=== PATIENT | female | born 1975 | race Caucasian/White ===

== ENCOUNTER 2016-09-06 17:17 | Observation (INO) | payer BC, OTHER ==
[~2016-09-06] VITALS: Ht 167.6 cm; Wt 117.5 kg
--- OUTSIDE RECORDS SUMMARY | 2016-09-06 17:20 | XMS REPORT | Referral Summary ---
Author Author Via RAMYA Carmen Newton, Family [facility] Organization Via RAMYA Carmen Newton [facility] Address Unknown Phone Unavailable Care Team Providers Care Complaints Coordinator Name Role Phone No PCP, States Primary Care Physician [phone] Encounter Date(s): 02/10/15 - 02/10/15 Via RAMYA Carmen Newton, [address] [place] [id number]- Discharge Diagnosis: Obesity Discharge Disposition: 01-Home or Self Care Attending Physician: Josephine Mustafa APRN Admitting Physician: Josephine Mustafa APRN Vital Signs Most recent to 1 oldest [Reference Range]: Temperature Tympanic 37.1 degC [36.6-38.1 degC] (02/10/15 10:01 AM) Peripheral Pulse 64 bpm Rate [60-100 bpm] (02/10/15 10:01 AM) Respiratory Rate 20 br/min [14-20 br/min] (02/10/15 10:01 AM) Blood Pressure 124/80 mmHg [90-140/60-90 mmHg] (02/10/15 10:01 AM) Problem List Condition Effective Dates Status Health Status Informant Allergic Active rhinitis(Confirmed) Hayfever(Confirmed) Active HELP Active syndrome(Confirmed) Gastroesophageal Active reflux(Confirmed) Metrorrhagia(Confirm Active ed)1 Perimenopausal?(Conf Active irmed) PCOS (polycystic Active ovarian syndrome)(Confirmed) 1probable fibroids Allergies, Adverse Reactions, Alerts Substance Reaction Severity Status amoxicillin Active Medications Claritin 10 mg oral tablet 10 mg 1 tabs, Oral, Daily Start Date: 01/31/15 Status: Ordered Results No data available for this section Immunizations No data available for this section Procedures Procedure Date Related Diagnosis Body Site section 06/17/06 section 06/17/03 Urethral dilation1 1age 4 Social History Social History Type Response Smoking Status Former smoker; Type: Cigarettes Assessment and Plan No data available for this section
--- NOTE | 2016-09-06 17:21 | NUR ---
STROKE ALERT PAGED AT THIS TIME BY ED CHARGE.
--- OUTSIDE RECORDS SUMMARY | 2016-09-06 17:21 | XMS REPORT | Referral Summary ---
Author Author Via RAMYA Carmen Newton, Family Medicine Organization Via RAMYA Carmen [facility] Address Unknown Phone Unavailable Care Team Providers Care Sales Associate Name Role Phone No PCP, States Primary Care Physician [phone] Encounter Date(s): 02/03/15 - 02/03/15 Via RAMYA Carmen Newton [address] [place] [id number]- Discharge Diagnosis: Well female exam with routine gynecological exam Discharge Diagnosis: Fatigue Discharge Diagnosis: Nausea Discharge Disposition: 01-Home or Self Care Attending Physician: Josephine Mustafa APRN Admitting Physician: Josephine Mustafa APRN Vital Signs Most recent to 1 oldest [Reference Range]: Temperature Tympanic 37.1 degC [36.6-38.1 degC] (02/03/15 1:58 PM) Peripheral Pulse 81 bpm Rate [60-100 bpm] (02/03/15 1:58 PM) Blood Pressure 114/70 mmHg [90-140/60-90 mmHg] (02/03/15 1:58 PM) SpO2 98 % (02/03/15 1:58 PM) Problem List Condition Effective Dates Status Health [...]
--- NOTE | 2016-09-06 17:22 | NUR ---
PROVIDER DR MARCANO IN TO SEE PATIENT.
--- NOTE | 2016-09-06 17:34 | NUR ---
BACK FROM CT
--- NOTE | 2016-09-06 17:45 | NUR ---
TELE NEURO ON ROBOT WITH NURSE IN ROOM.
[2016-09-06 18:06] LABS: BASOPHILS % (AUTO) 0.3 % (0-2); EOSINOPHILS # (AUTO) 0.3 T/MM3 (0-0.5); EOSINOPHILS % (AUTO) 2.6 % (0-4); HCT - HEMATOCRIT 42.9 % (36-46); HGB - HEMOGLOBIN 14.4 GM/DL (12-16); IMMATURE GRANULOCYTE # (AUTO) 0.02 T/MM3 (0.00-0.03); IMMATURE GRANULOCYTE % (AUTO) 0.2 % (0.0-0.5); LYMPHOCYTES # (AUTO) 2.6 T/MM3 (1-4.8); LYMPHOCYTES % (AUTO) 26.7 % (23-45); MEAN CORPUSCULAR HGB 29.9 UUG (26-34); MEAN CORPUSCULAR HGB CONC(MCHC 33.6 GM/DL (31-37); MEAN PLATELET VOLUME 10.9 UM3 (9.4-12.4); MONOCYTES # (AUTO) 0.7 T/MM3 (0-0.8); NEUTROPHILS #(AUTO)-ABSOLUTE 6.1 T/MM3 (1.8-7.7); NEUTROPHILS % (AUTO) 63.2 % (33-66); RED BLOOD COUNT 4.82 M/MM3 (4.00-5.20); WBC - WHITE BLOOD COUNT 9.7 T/MM3 (4.5-11.0)
[2016-09-06] MEDS ORDERED: NO ROUTINE MEDS (18:06)
[2016-09-06] MEDS ORDERED: IBUP-1724 PO (18:06)
[2016-09-06 18:14] LABS: INR 0.95 (0.76-1.04); PROTHROMBIN TIME 10.4 SEC (9.31-12.49); PTT 28.8 SEC (24-36)
[2016-09-06 18:15] LABS: GLUCOSE 110 MG/DL (65-110)
[2016-09-06 18:16] LABS: ALBUMIN 4.1 G/DL (3.5-5.0); ALBUMIN/GLOBULIN RATIO 1.4 RATIO (1.1-2.2); ALKALINE PHOSPHATASE 44 U/L (38-126); ALT (SGPT) 33 U/L (9-52); ANION GAP 8 MEQ/L (5-15); AST (SGOT) 34 U/L (14-36); BUN/CREATININE RATIO 18 RATIO (6-26); CALCIUM 9.3 MG/DL (8.4-10.2); CHLORIDE 110 MEQ/L (98-107); CO2 - CARBON DIOXIDE 24 MEQ/L (22-30); CREATININE 0.9 MG/DL (0.7-1.2); GLOMERULAR FILTRATION RATE 69; POTASSIUM 4.1 MEQ/L (3.6-5); SODIUM 142 MEQ/L (134-144)
--- NOTE | 2016-09-06 18:30 | NUR ---
IV ACCESS ATTEMPTED X8 WITHOUT SUCCESS. X2 BY OIL TANKER CAPTAIN, X5 BY CCU RN'S, X1 BY ED RN.
[2016-09-06 18:32] LABS: BLOOD, URINE 1+ (NEGATIVE); COLOR,URINE YELLOW (YELLOW); LEUKOCYTE ESTERASE ,URINE NEGATIVE (NEGATIVE); NITRITE,URINE NEGATIVE (NEGATIVE); UROBILINOGEN,URINE 0.2 EU/DL (NORMAL)
--- NOTE | 2016-09-06 18:32 | ERPDOC ---
Departure Disposition Decision Date: Sep 06, 2016 Disposition Decision Time: 18:30 Disposition: 02 TO [facility] Impression Impression Impression: Primary Impression: TIA (transient ischemic attack) Transient cerebral ischemia type: unspecified Qualified Codes: G45.9 - Transient cerebral ischemic attack, unspecified Severity: Mild Condition: Improved Seen By: Physician only Problems/Meds/Labs Reviewed?: Yes Medications reviewed and manag: Yes Follow up care ordered?: Yes Mental Status: Alert, Oriented HPI - General Medical General Chief Complaint: Neuro Symptoms/Deficits Stated Complaint: SLURRING WORDS/THICK TONGUE/FACIAL TINGLING Time Seen by Provider: 17:27 Source: patient, family Exam Limitations: no limitations HPI - General Medical Initial Comments 41-year-old female presents to the emergency department with a chief complaint of having a brief episode of slurring her words with a thick tongue and facial tingling that occurred at approximately 1 PM today. She notes that her symptoms lasted approximately 3-5 minutes before resolving in entirety. Patient denies any pain or discomfort currently. Patient was at home when her symptoms began and resolved. Patient does not note any exacerbating or remitting factors. No other complaints or associated symptoms. She is currently asymptomatic in the emergency department. Patient was yelling at her children in the front yard at home when the symptoms occurred. Occurred At: home Onset: other (Resolved. ) Allergies: Coded Allergies: adhesive tape (Verified Allergy, Unknown, 09/06/16) amoxicillin (Verified Adverse Reaction, Unknown, 09/06/16) "IT IS NOT EFFECTIVE" Past History Past Medical History Pt denies signifigant PMH Surgical History Reproductive/: Family History Family History: Negative Vaccines Hx Influenza Vaccination: Yes (fall) Hx Tetanus, Diptheria, Pertuss: Yes (12/10/14) Social History Smoking Status: Never smoker Substance Use Type: does not use Alcohol Intake: none Review of Systems Constitutional Constitutional: DENIES: chills, fever Eyes General: DENIES: erythema, exudate Lids/Accessories: DENIES: erythema, swelling Vision: DENIES: acuity, blurring ENMT Ears: DENIES: drainage, erythema Hearing: DENIES: hearing loss Balance: DENIES: ataxia, falling to one side Sinuses: DENIES: congestion, pain Nose: DENIES: nosebleeds, pain Mouth/Throat: DENIES: painful swallowing, sore throat Jaw: DENIES: pain Cardiovascular Cardiac: DENIES: chest pain, dyspnea on exertion Rhythm/Rate: DENIES: irregular beat, palpitations Vascular: DENIES: pedal edema, unilateral swelling Pulmonary Respiratory: DENIES: cough, dyspnea, pleuritic chest pain, sputum GI Upper Abdomen: DENIES: nausea, pain, vomiting Lower Abdomen: DENIES: diarrhea, pain General: DENIES: dysuria, pain Musculoskeletal General: DENIES: pain, tenderness Integumentary Skin: DENIES: itching, rash Neurological General: DENIES: change in strength, headache, numbness, weakness Psychiatric Psychiatric: DENIES: emotional instability, suicidal ideation/attempt Endocrine Endocrine: DENIES: polydipsia, polyphagia Allergic/Immunological Allergic/Immunoligical: DENIES: allergic reactions, hives Physical Exam General General Nourishment: well nourished, well developed, appears stated age, no acute distress, adult General Body Habitus: well groomed Vitals and Pain First Documented Vital Signs Date Time Temp Pulse Resp B/P Pulse Ox O2 Delivery O2 Flow Rate FiO2 09/06/16 17:20 97.8 65 20 134/83 99 Room Air Weight: Kilograms: 118.500 Height (feet): 5 Height (inches): 6.00 Triage Pain Scale: RN VS reviewed by Provider: Yes Normal Exams: Head: Normocephalic w/o trauma Eyes: Pupils are PERRLA w/ EOMI, No scleral icterus, irritation, or foreign bodies noted ENMT: No facial trauma, nasal exudates, pharyngeal erythema, or exudates are noted Dental: No fractured, loose, or missing teeth noted Neck: Full range of motion, without adenopathy, JVD, bruits or thyromegaly Chest/Resp: Clear all ludwig, with good airflow, and symmetry bilaterally CV: Regular rate and rhythm, without murmur or gallop, Pulses 2+ all extremities, capillary refill, <2 seconds all ext., no pedal edema noted Abdomen: Bowel sounds positive, soft, non-tender, non-distended, no hepatosplenomegaly, masses or bruits noted Lymphatic: No lymphadenopathy, or lymphedema noted Musculoskeletal: No tenderness, or deformity noted, good range of motion, all extremities Integumentary: No rashes, hives, or bruising noted, hair and nails, without abnormality Neurologic: Patient is alert, and oriented, cranial nerves, motor/sensory/ cerebellar, exams w/o gross deficits, to observation Psychiatric: Patient exhibits, appropriate attention, emotion and affect Neurologic (brief) Comments Alert and oriented x 4. CN 2-12 intact. sensation intact. strength normal. normal speech. normal motor. normal coordination. Reflexes 2/4 in all extremities. Absent Babinski bilaterally. Normal gait. No focal neurologic deficit. Differential Diagnoses Considering: CVA, Hypo/Hyperglycemia, Metabolic, TIA, UTI Progress Results/Orders Orders Procedure Category Date Status Time Ct Head W/O Contrast CT 09/06/16 Taken 17:27 Cbc W/Auto LAB 09/06/16 Complete Diff-Reflex Manual Cmp - Comprehensive LAB 09/06/16 Complete Metabolic Troponin I W LAB 09/06/16 Complete Hemolysis Index Chest 1 View RAD 09/06/16 Taken 17:27 LAB 09/06/16 Complete Qualitative, Urine 17:27 EKG EKG 09/06/16 Taken INR LAB 09/06/16 Complete PTT LAB 09/06/16 Complete UA, LAB 09/06/16 Complete Dip&Micro(Complete) & 18:23 Aspirin (Asa) PHA 09/07/16 In Process 09:00 Place In Facility: ED ADM 09/06/16 Transmitted 18:37 Lab Results Laboratory Tests Test 09/06/16 17:26 09/06/16 17:59 09/06/16 18:23 Glucometer 91mg/dL White Blood Count 9.7T/MM3 Red Blood Count 4.82M/MM3 Hemoglobin 14.4GM/DL Hematocrit 42.9% Mean Corpuscular Volume 89.0UM3 Mean Corpuscular Hemoglobin 29.9UUG Mean Corpuscular Hemoglobin Concent 33.6GM/DL RDW Standard Deviation 44.7FL Platelet Count 190T/MM3 Mean Platelet Volume 10.9UM3 Immature Granulocyte % (Auto) 0.2% Neutrophils (%) (Auto) 63.2% Lymphocytes (%) (Auto) 26.7% Monocytes (%) (Auto) 7.0% Eosinophils (%) (Auto) 2.6% Basophils (%) (Auto) 0.3% Absolute Immature Granulocyte (auto 0.02T/MM3 Absolute Neutrophils (auto) 6.1T/MM3 Absolute Lymphocytes (auto) 2.6T/MM3 Absolute Monocytes (auto) 0.7T/MM3 Absolute Eosinophils (auto) 0.3T/MM3 Absolute Basophils (auto) 0.0T/MM3 Prothromb Time International Ratio 0.95 Activated Partial Thromboplast Time 28.8SEC Turbidity < 20 Sodium Level 142MEQ/L Potassium Level 4.1MEQ/L Chloride Level 110MEQ/L Carbon Dioxide Level 24MEQ/L Anion Gap 8MEQ/L Blood Urea Nitrogen 16.0MG/DL Creatinine 0.9MG/DL Glomerular Filtration Rate Calc 69 BUN/Creatinine Ratio 18RATIO Glucose Level 110MG/DL Calculated Osmolality 275MOSM/KG Calcium Level 9.3MG/DL Total Bilirubin 0.60MG/DL Icterus Index < 2 Aspartate Amino Transf (AST/SGOT) 34U/L Alanine Aminotransferase (ALT/SGPT) 33U/L Alkaline Phosphatase 44U/L Troponin I < 0.012ng/ml Total Protein 7.0G/DL Albumin 4.1G/DL Globulin 2.9G/DL Albumin/Globulin Ratio 1.4RATIO Chemistry Specimen Hemolysis < 15 Urine Collection Type Cleancatch-midstream Urine Color Yellow Urine Turbidity Clear Urine pH 5.5 Urine Specific [place] 1.015 Urine Protein Negative Urine Glucose (UA) Negative Urine Ketones Negative Urine Blood 1+ Urine Nitrite Negative Urine Bilirubin Negative Urine Urobilinogen 0.2EU/DL Urine Leukocyte Esterase Negative Urine RBC 0-1/HPF Urine WBC 0-1/HPF Urine Squamous Epithelial Cells 0-5 Urine Bacteria None seen Urine Hyaline Casts 0-1/LPF Urine Culture Indicated Cult not indicated Urine Test Negative Progress Progress Labs/imaging were discussed in detail with the patient and family and questions are answered. Patient is given aspirin 324 mg by mouth 1 in the emergency department after negative head CT is obtained. Patient is evaluated by the Tele -neurologist who recommends Stroke workup. Patient is not a TPA candidate secondary to resolution of symptoms and low NIH. Patient is admitted to the hospital in observation status in improved condition. Patient is in agreement with the current plan of management. Patient is admitted to the service of Dr. Villasenor. Accepting physician is in agreement with the current plan of management. EKG EKG : Rate: 60-100 Rhythm: sinus [place]: normal QRS: normal Intervals: normal ST/T: normal Interpreted by: signing physician Xray Xray : Xray: CXR Portable Interpretation: Normal, Interpreted by Wv CT Date CT Interpreted for Stoke: Sep 06, [address] Interpreted for Stroke: 17:44 CT : CT: Head no contrast Interpretation: Normal, Faxed Report CLAU MARCANO DO Sep 06, 2016 18:31
--- NOTE | 2016-09-06 18:33 | NUR ---
PROVIDER DR MARCANO IN TO SEE PATIENT.
[2016-09-06 18:44] LABS: BACTERIA,URINE NONE SEEN (NEGATIVE); HYALINE CASTS, URINE 0-1 /LPF; RBC,URINE 0-1 /HPF (0-3); SQUAMOUS EPITHELIAL CELL,UR 0-5; WBC,URINE 0-1 /HPF (0-5)
[2016-09-06] MEDS: ASPIRIN 81 MG CHEWABLE TABLET PO SCH (18:52)
--- NOTE | 2016-09-06 18:56 | NUR ---
Esau grant in ED - 09/06/16 at 1902 by EDMUNDO PROVIDER Shalini JACKSON APRN IN TO SEE PATIENT.
--- NOTE | 2016-09-06 18:58 | NUR ---
IV ACCESS TAY BUI, IS TO COME IN "A COUPLE OF HOURS" TO ATTEMPT US GUIDED IV ACCESS.
[2016-09-06] MEDS ORDERED: ACETAMINOPHEN 325 MG TABLET PO PRN (19:00)
[2016-09-06] MEDS ORDERED: ONDANSETRON 4mg/2ml INJECTION IV PRN (19:00)
--- NOTE | 2016-09-06 19:10 | NUR ---
REPORT GIVEN TO LUZMARIA HALL. NO QUESTIONS.
--- NOTE | 2016-09-06 19:20 | NUR ---
ADMIT TO ROOM 162 PER W/C. CARE ASSUMED BY NEELIMA HALL.
--- NOTE | 2016-09-06 19:20 | NUR ---
MEDICAL ARRIVED TO MEDICAL RM 162 FROM ED VIA W/C, PT'S IS AT BEDSIDE.
[2016-09-06 19:23] VITALS: BP 139/86; PULSE 61; RESP 18; TEMP 99; O2SAT 100
[2016-09-06 19:28] VITALS: Ht 167.6 cm; Wt 117.5 kg
--- NOTE | 2016-09-06 20:16 | HPPDOC ---
JULIANNA VASQUES MD 09/06/16 2008: HPI - Adult Date DATE: 09/06/16 TIME: 20:02 General Chief Complaint: slurred speech History of Present Illness 41 yo F with no significant PMH presented to the ED tonight after developing slurred speech and facial tingling. Patient reports that at about 3:00pm today she developed slurred speech while yelling at her son. She reports that she went to tell him to the room and the words came out all jumbled. This happened again and her son called EMS. She reported by the time EMS arrived her symptoms had resolved. She was HTN at that time with BP of 145/97. She declined transfer to hospital at that time. She reports that she developed a posterior head/neck pain.Then about 2 hours later she developed some facial tingling. She then reported to the ED. She does not have a HX of stroke or seizure in the past. She denies CP or SOA or LOC. Her tingling and headache have since resolved. Tele Stroke was called and recommended patient be admitted for stroke rule out. Tele stroke reported likely complex migraine symptoms. Past Medical History Past Medical History No significant Current Medications Home Meds Reported Medications [No Routine Meds] No Conflict Check 09/06/16 Ibuprofen (Ibuprofen) 200 Mg Tablet, 600 MG PO Q6H Y for PAIN 09/06/16 Allergies: Coded Allergies: adhesive tape (Verified Allergy, Unknown, 09/06/16) amoxicillin (Verified Adverse Reaction, Unknown, 09/06/16) "IT IS NOT EFFECTIVE" Family History Family History: No HX of stroke Social History Advance Directives: No DPOA for Healthcare Only Review of Systems Constitutional: REPORTS: see HPI ENMT Balance: DENIES: ataxia, falling to one side, other, see HPI, vertigo Sinuses: NOT FOUND: congestion, other, pain, rhinorrhea, see HPI Mouth/Throat: REPORTS: see HPI Cardiovascular DENIES: chest pain, dyspnea on exertion, hx of rheumatic fever, murmur, orthopnea, other, paroxysmal nocturnal dysp, see HPI Rhythm/Rate: DENIES: bradycardia, irregular beat, other, palpitations, see HPI , tachycardia Pulmonary Respiratory: DENIES: cough, dyspnea, exposure to TB, hyperventilation, other, pleuritic chest pain, pneumonia hx, see HPI, sputum, tachypnea GI Upper Abdomen: DENIES: abdominal swelling, dysphagia, food intolerances, heartburn/indigestion, hematemesis, nausea, other, pain, see HPI, vomiting Lower Abdomen: DENIES: blood in stool, ry-colored stools, constipation, diarrhea, melena, other, pain, painful BM, see HPI Musculoskeletal General: DENIES: atrophy of muscles, cramps, edema, joint pain, joint swelling , other, pain, see HPI, spasm, tenderness, weakness Lumbar: DENIES: other, pain, see HPI, spasm Integumentary Skin: DENIES: color change, infections, itching, lesion, mole, other, rash, see HPI, sores, tumor, ulcers Neurological General: DENIES: aphasia, ataxia, blackouts, blindness, change in strength, dysarthria, dysesthesia, fainting, headache, memory disturbances, numbness, other, paralysis/paresis, poor coordination, see HPI, seizures, syncope, tics, tingling, tremor, vertigo, weakness Psychiatric Psychiatric: DENIES: anxiety, depression, emotional instability, hallucinations , irritability, memory impairment, nervousness, other, see HPI, suicidal ideation/attempt Endocrine DENIES: heat/cold intolerance, other, polydipsia, polyphagia, see HPI Hematologic/Lymphatic DENIES: anemia, bleeding gums, easy bruising, frequent nosebleeds, lymphadenopathy, other, see HPI Allergic/Immunological DENIES: allergic reactions, frequent infections, hives, other, see HPI, sneezing Physical Exam General General Nourishment: well nourished, well developed, adult Vital Signs Vital Signs Date Time Temp Pulse Resp B/P Pulse Ox O2 Delivery O2 Flow Rate FiO2 09/06/16 19:23 99.0 61 18 139/86 100 Room Air Height (Feet): 5 Height (Inches): 6.00 Eyes Brief: FOUND: EOMI, PERRL Respiratory Brief: FOUND: clear all ludwig, equal bilaterally Cardiovascular (brief) Cardiac Brief: FOUND: regular rate, regular rhythm Abdomen (brief) Abdominal Brief: FOUND: BS normo active x4, soft Musculoskeletal (brief) Musculoskeletal Brief: NOT FOUND: deformity, extremities move equally, loss of motion, other, spasm, tenderness Integumentary (brief) Integumentary Brief: NOT FOUND: dry, lesions, other, pink, rash, warm Neurologic (brief) Neurological Brief: FOUND: cranial 2-12 intact, NOT FOUND: Babinski, DTR 2/4 all extremities, cerebellar, facial droop, motor, other, ptosis, sensory Neurologic RN Documented GCS Eye Opening: (4)Spontaneous Verbal: (5)Oriented Motor: (6)Obeys Commands Total: Psychiatric (brief) FOUND: alert, oriented Laboratory Laboratory Tests Test 09/06/16 17:26 09/06/16 17:59 09/06/16 18:23 Glucometer 91mg/dL White Blood Count 9.7T/MM3 Red Blood Count 4.82M/MM3 Hemoglobin 14.4GM/DL Hematocrit 42.9% Mean Corpuscular Volume 89.0UM3 Mean Corpuscular Hemoglobin 29.9UUG Mean Corpuscular Hemoglobin Concent 33.6GM/DL RDW Standard Deviation 44.7FL Platelet Count 190T/MM3 Mean Platelet Volume 10.9UM3 Immature Granulocyte % (Auto) 0.2% Neutrophils (%) (Auto) 63.2% Lymphocytes (%) (Auto) 26.7% Monocytes (%) (Auto) 7.0% Eosinophils (%) (Auto) 2.6% Basophils (%) (Auto) 0.3% Absolute Immature Granulocyte (auto 0.02T/MM3 Absolute Neutrophils (auto) 6.1T/MM3 Absolute Lymphocytes (auto) 2.6T/MM3 Absolute Monocytes (auto) 0.7T/MM3 Absolute Eosinophils (auto) 0.3T/MM3 Absolute Basophils (auto) 0.0T/MM3 Prothromb Time International Ratio 0.95 Activated Partial Thromboplast Time 28.8SEC Turbidity < 20 Sodium Level 142MEQ/L Potassium Level 4.1MEQ/L Chloride Level 110MEQ/L Carbon Dioxide Level 24MEQ/L Anion Gap 8MEQ/L Blood Urea Nitrogen 16.0MG/DL Creatinine 0.9MG/DL Glomerular Filtration Rate Calc 69 BUN/Creatinine Ratio 18RATIO Glucose Level 110MG/DL Calculated Osmolality 275MOSM/KG Calcium Level 9.3MG/DL Total Bilirubin 0.60MG/DL Icterus Index < 2 Aspartate Amino Transf (AST/SGOT) 34U/L Alanine Aminotransferase (ALT/SGPT) 33U/L Alkaline Phosphatase 44U/L Troponin I < 0.012ng/ml Total Protein 7.0G/DL Albumin 4.1G/DL Globulin 2.9G/DL Albumin/Globulin Ratio 1.4RATIO Chemistry Specimen Hemolysis < 15 Urine Collection Type Cleancatch-midstream Urine Color Yellow Urine Turbidity Clear Urine pH 5.5 Urine Specific [place] 1.015 Urine Protein Negative Urine Glucose (UA) Negative Urine Ketones Negative Urine Blood 1+ Urine Nitrite Negative Urine Bilirubin Negative Urine Urobilinogen 0.2EU/DL Urine Leukocyte Esterase Negative Urine RBC 0-1/HPF Urine WBC 0-1/HPF Urine Squamous Epithelial Cells 0-5 Urine Bacteria None seen Urine Hyaline Casts 0-1/LPF Urine Culture Indicated Cult not indicated Urine Test Negative Sepsis Diagnostic Criteria Sepsis Confirmed/Suspected Infection: No Assessment & Plan Problems: (1) TIA (transient ischemic attack) Status: Acute Assessment & Plan: slurred speech, facial tingling and tongue swelling. currently resolving. TIA vs complex migraine. CT head negative for acute findings. MRI brain pendings, carotid US, ECHO. neuro checks Q2H. ASA 325mg QD. Tele stroke consulted by ED, recommend rule out stroke. Continue supportive care. (2) Migraine Status: Acute Assessment & Plan: improved with ASA 325mg in ED. Tylenol 650mg Q4H PRN for pain overnight. DVT Prophylaxis: other (early ambulation) Code Status Full Code Hospital Course Summary Disclaimer The hospital course summary below is not to be considered part of the above Progress Note. ZEKE KEARNEY MD 09/07/16 1319: Past Medical History Current Medications Home Meds Reported Medications [No Routine Meds] No Conflict Check 09/06/16 Ibuprofen (Ibuprofen) 200 Mg Tablet, 600 MG PO Q6H Y for PAIN 09/06/16 Allergies: Coded Allergies: adhesive tape (Verified Allergy, Unknown, 09/06/16) amoxicillin (Verified Adverse Reaction, Unknown, 09/06/16) "IT IS NOT EFFECTIVE" Assessment & Plan Problems: (1) TIA (transient ischemic attack) Status: Acute Assessment & Plan: slurred speech, facial tingling and tongue swelling. currently resolving. TIA vs complex migraine. CT head negative for acute findings. MRI brain pendings, carotid US, ECHO. neuro checks Q2H. ASA 325mg QD. Tele stroke consulted by ED, recommend rule out stroke. Continue supportive care. (2) Migraine Status: Acute Assessment & Plan: improved with ASA 325mg in ED. Tylenol 650mg Q4H PRN for pain overnight. (3) ROSEMARY on CPAP Status: Chronic (4) Environmental and seasonal allergies Status: Chronic (5) Morbid obesity Status: Chronic Qualifiers: Obesity type: due to excess calories Qualified Codes: E66.01 - Morbid ( severe) obesity due to excess calories Plan/Intensity of Service Have independently interviewed and examined pt. Chart reviewed. Reviewed above note and concur. CC: Difficulty speaking, visual changes. HPI: 41 y/o female presents to ED with difficulty speaking and visual change. Reports was 'yelling' at son when realized her words where not coming out right- slurring of words and not understandable. Realized (could even hear) her words were wrong. Motioned to family members to dial 911 - EMS arrived in a few minutes. Symptoms had completely resolved by time EMS arrive. Sugar checked and normal. BP 140s systolic. Declined transport. Did well until about 2 hours later when she noticed her face felt tight, tongue felt large, and had visual change (squiggly lines). No palpitation or chest pain. No recent viral syndrome. Typical state of health. Presents to ED for evaluation. Initial CT unremarkable. PMHx: Seasonal allergies, ROSEMARY-treated with CPAP, Hx x 2 Allergies: amoxacillin, tape SHx: . Stopped smoking 4 months ago. FHx: GM of stroke at young age due to stoke. Aunt with stoke at young age. She has 2 children with ADHD. ROS: Gen: no f/c or recent viral syndrome. HEENT: No increased sinus pressure or pain. Pulm: no SOA, cough, congestion. CV: No chest pain pressure or palpiations. GI: no n/v. Bowel stable. : no pain, burning, blood with urination. Musculoskeletal: Not right rib pain-feels pulled a muscle. Psych: social stressors at home. Exam Gen: WDWNWM awake alert appropriate HEENT: NC/AT PERRLA EOMI MMM Neck: midline, supple CV: regular Lungs: clear bilaterally AB: soft nt/nd +BS EXT: no edema Neuro: CN II-XII intact, no focal motor deficits Psych: awake alert appropriate Skin: warm and dry Lab: reviewed Imagining: reviewed Assessment: as above Plan: OBS, ASA, MRI brain, ECHO, doppler neck, Monitor neuro symptoms, DVT Prophylaxis: other (early ambulation) JULIANNA VASQUES MD Sep 06, 2016 20:08 ZEKE KEARNEY MD Sep 07, 2016 13:19
[2016-09-07 00:17] VITALS: BP 116/67; PULSE 62; RESP 18; TEMP 97.5; O2SAT 96
[2016-09-07 05:34] LABS: BASOPHILS % (AUTO) 0.6 % (0-2); EOSINOPHILS # (AUTO) 0.2 T/MM3 (0-0.5); EOSINOPHILS % (AUTO) 2.1 % (0-4); HCT - HEMATOCRIT 40.4 % (36-46); HGB - HEMOGLOBIN 13.3 GM/DL (12-16); IMMATURE GRANULOCYTE # (AUTO) 0.02 T/MM3 (0.00-0.03); IMMATURE GRANULOCYTE % (AUTO) 0.3 % (0.0-0.5); LYMPHOCYTES # (AUTO) 2.6 T/MM3 (1-4.8); LYMPHOCYTES % (AUTO) 36.3 % (23-45); MEAN CORPUSCULAR HGB 29.6 UUG (26-34); MEAN CORPUSCULAR HGB CONC(MCHC 32.9 GM/DL (31-37); MEAN PLATELET VOLUME 11.2 UM3 (9.4-12.4); MONOCYTES # (AUTO) 0.5 T/MM3 (0-0.8); MONOCYTES % (AUTO) 7.2 % (0-9.0); NEUTROPHILS #(AUTO)-ABSOLUTE 3.8 T/MM3 (1.8-7.7); NEUTROPHILS % (AUTO) 53.5 % (33-66); RED BLOOD COUNT 4.49 M/MM3 (4.00-5.20); WBC - WHITE BLOOD COUNT 7.1 T/MM3 (4.5-11.0)
--- NOTE | 2016-09-07 05:39 | NUR ---
Status Pt is alert and oriented x3. She is on RA tolerating well. Neuro checks have been done as planed, no s/s of CVA. Pt denies numbness or tingling. Denies pain or any other discomfort. Midline placed last night per Manolo from radiology. Will continue to monitor.
[2016-09-07 05:46] LABS: ANION GAP 6 MEQ/L (5-15); BUN/CREATININE RATIO 19 RATIO (6-26); CALCIUM 8.8 MG/DL (8.4-10.2); CHLORIDE 110 MEQ/L (98-107); CO2 - CARBON DIOXIDE 25 MEQ/L (22-30); CREATININE 0.8 MG/DL (0.7-1.2); GLOMERULAR FILTRATION RATE 79; GLUCOSE 99 MG/DL (65-110); SODIUM 141 MEQ/L (134-144)
--- NOTE | 2016-09-07 07:57 | DI ---
Indication: ITS.REASON: slurred speech PROCEDURE: CHEST 1 VIEW: Encounter: Initial Comparison: None FINDINGS: The lungs are clear. There is no abnormal airspace opacity, pleural effusion or pneumothorax identified. The heart size, pulmonary vasculature and mediastinum are within normal limits. No significant skeletal abnormality is seen. IMPRESSION: No acute cardiopulmonary abnormality. .
[2016-09-07 08:00] VITALS: BP 107/67; PULSE 65; RESP 16; TEMP 97.3; O2SAT 96
--- NOTE | 2016-09-07 08:00 | DI ---
Indication: ITS.REASON: slurred speech PROCEDURE: CT HEAD W/O CONTRAST: Encounter: Initial Comparison: None Technique: Axial CT images through the head were performed without contrast. Iterative Reconstruction dose reducing technique was utilized. FINDINGS: The ventricles are of normal size, shape, and configuration for the patient's age. There is no evidence of acute intracranial hemorrhage, midline displacement, or mass effect. The CT attenuation of the brain parenchyma is normal within the cerebellum, brain stem, and cerebral hemispheres. The tympanic cavities and mastoid air cells are free of appreciable disease. There are no definite fractures of the skull base, calvarium, or visualized portion of the midface. IMPRESSION: No CT evidence of acute intracranial abnormality. There is a preliminary report by [employer]. .
[2016-09-07] MEDS: ASPIRIN 81 MG CHEWABLE TABLET PO SCH (09:18)
--- NOTE | 2016-09-07 10:12 | DI ---
Indication: ITS.REASON: slurred speech PROCEDURE: US CAROTID DOPP COMPLETE: TECHNIQUE: Grayscale, color and duplex Doppler imaging was performed of the carotid systems bilaterally. Velocities in cm/sec - validated velocity measurements with angiographic measurements, velocity criteria are extrapolated from diameter data as defined by the Society of Radiologists in Ultrasound Consensus Conference Radiology 2003; 229;340-346. RIGHT: PSV ICA 73 EDV ICA 39 PSV CCA 86 EDV CCA 27 SVR 0.80 PSV ECA 99 ICA Diameter reduction 0% (<0.8)% LEFT: PSV ICA 72 EDV ICA 36 PSV CCA 93 EDV CCA 25 SVR 0.80 PSV ECA 70 ICA Diameter reduction 0% (<0.8)% The right vertebral artery is patent with cephalic flow. The left vertebral artery is patent with cephalic flow. IMPRESSION: No hemodynamically significant carotid stenosis. .
[2016-09-07] MEDS ORDERED: GADOBUTROL 10mMol/10ml INJECTION IV ONE (11:03)
[2016-09-07] MEDS ORDERED: SALINE FLUSH 10ml SYRINGE ONE (11:03)
--- NOTE | 2016-09-07 12:13 | DI ---
Indication: ITS.REASON: Slurred speech PROCEDURE: MRI BRAIN W/WO CONTRAST: Encounter: Initial Comparisons: Head CT from yesterday Technique: Multiplanar, multisequence, MR imaging of the head with and without contrast was acquired. Contrast: 10 mL of Gadavist FINDINGS: The ventricles are of normal size, shape, and contour for the patient's age. The brain stem, cerebellum, and cerebral hemispheres have a normal morphologic appearance as well as MR signal intensity on all pulse sequences. Following intravenous administration of contrast, no areas of abnormal enhancement are evident. There are no areas of restricted diffusion to suggest an acute infarct. There is no evidence of an intracranial mass lesion, intracranial hemorrhage, or hydrocephalus. The visualized portions of the orbits, calvarium, paranasal sinuses, and skull base demonstrate no significant abnormality. IMPRESSION: Normal exam .
--- NOTE | 2016-09-07 12:24 | NUR ---
CM PEGGY SCORE IS 2 Addendum: 09/07/16 at 1225 by CARLINE GARZON SW Amended: Links added.
--- NOTE | 2016-09-07 12:25 | NUR ---
CM SPOKE WITH PT, INTRODUCED SELF, EXPLAINED ROLE, PROVIDED CONTACT INFO. PT SAID SHE LIVES HERE IN [place] WITH HER , AND HER DC PLAN IS FOR HER TO RETURN HOME. SHE SAID SHE DOES NOT HAVE ANY DC NEEDS AT THIS TIME. ENCOURAGED HER TO CALL IF QUESTIONS/NEEDS DO [place], AND SHE SAID OK. SHE SAID SHE IS PENDING MEDICAID, AND HER INSURANCE THROUGH HER JOB STARTS SEPTEMBER 15. Addendum: 09/07/16 at 1227 by CARLINE CARDENAS Amended: Links added.
[2016-09-07] MEDS ORDERED: CALC-727 PO (13:23)
[2016-09-07] MEDS ORDERED: ASPI81TA2 PO (13:23)
--- NOTE | 2016-09-07 14:30 | NUR ---
status/ DC Pt A/O x3, V/S stable on RA. No s/s of stroke, no trouble with speech. Pt eating and urinating well. Pt denies pain and no PRN meds given. 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 Midline taken out, tip intact. DC instructions given and no questions at this time. All belongings taken. Pt walked to front door.
--- NOTE | 2016-09-08 13:06 | ECHOF ---
DATE OF SERVICE 09/07/2016 INDICATIONS Transient ischemic attack/slurred speech. TECHNICAL QUALITY Technically difficult 2D, M-mode Doppler echocardiographic images were submitted for interpretation. This study is overall considered diagnostic nevertheless. FINDINGS 1. CARDIAC CHAMBERS: Left atrium is mildly enlarged. It measures 4.5 cm. All other cardia chambers are normal in size. Aortic root diameter is normal. RV size and contractility appear normal. 2. LEFT VENTRICLE: Wall thickness is normal. Wall motion analysis normal. Systolic function is normal with an EF of 71%. Diastolic function parameters are normal. 3. VALVES: Aortic, mitral, and tricuspid valve structure and motion appear unremarkable with normal valve excursion as seen on the suboptimal/limited views, save mild sclerosis especially of the posterior leaflet tip. 4. DOPPLER: Doppler shows normal flow velocity throughout. At least mild mitral regurgitation is present (1 to 2+) over the two jets identified. No criteria for prolapse are evident. FINAL IMPRESSION 1. Mild left atrial enlargement. 2. Sclerotic mitral valve with at least mild mitral insufficiency of 1 to 2+. 3. Normal LV systolic and diastolic function. 4. No evidence of intracardiac masses, thrombi, vegetations, or shunts. If a cardiac source of embolus is suspected, transesophageal echocardiogram with bubble study may be beneficial and of added value. 5. The patient was in sinus rhythm during the study. [facility]
--- NOTE | 2016-09-09 11:05 | DSF ---
ADMISSION DIAGNOSIS Slurred speech, facial tingling, and tongue swelling - resolved; TIA versus complex migraine. DISCHARGE DIAGNOSIS Suspect TIA. ASSOCIATED CONDITIONS/COMPLICATIONS 1. possible complex migraine - resolved. 2. Obstructive sleep apnea on CPAP. 3. Environmental allergies. 4. Morbid obesity. CONSULTS None. CLINICAL RESUME Mrs. Holland is a 41-year-old female who presents to [facility] emergency room secondary to slurred speech. The patient reports around 3 o'clock p.m. today she developed slurred speech while yelling at her son. She reports she went to say something the words came out jumbled. It happened again and EMS was activated. By the time EMS arrived symptoms had resolved. She was evaluated and blood sugar was normal. Her blood pressure was 145/97. At that time she declined transfer to the emergency room. She reports that she developed a posterior head/neck pain. About two hours later she developed some facial tingling. Along with this she had some visual changes. She felt there were wavy lines before eyes. She has never had a stroke in the past but does have significant family history of stroke. She presents to emergency room for evaluation. Her symptoms had resolved. Telestroke was called and did feel an observation to exclude CVA would be prudent. Teleneurologist's felt symptoms were more likely call complex migraine in nature. For complete details of the H&P refer to that document. LABORATORY White blood count is 5.7 with hemoglobin 14.4, hematocrit 42.9, MCV 89.0 and platelets 190,000. Serum sodium is 142, potassium 4.1, chloride 110, CO2 24, BUN 60 of creatinine 0.9, GFR 69 and blood glucose 110. Transaminases are unremarkable. INR is 0.95 with PTT 28.8. UA is remarkable only for 1+ blood. Lipid profile was obtained, results are pending as it is batched at [facility]. IMAGING CT scan of brain shows no evidence of acute intracranial abnormality. Carotid Dopplers revealed no hemodynamically significant carotid artery stenosis. MRI of brain is normal. Echocardiogram is pending. HOSPITAL COURSE The patient was placed in outpatient observation status at [facility] under the hospitalist service. She was initiated on aspirin 324 mg in the emergency room. This was continued daily. Zofran was made available for nausea and Tylenol available as needed for pain. Neuro checks were monitored. She did undergo above-noted testing. Overall her hospital course was one of very good improvement. Symptoms resolved and we saw no recurrence. No other neurological symptomatology developed. Results of testing (except for lipid profile and echocardiogram) were discussed with the patient. In light of her significant stroke history we are recommending aspirin 81 mg daily for protection. She was advised on potential side effects including but not limited to upset stomach, hematemesis and GI bleeding. She will watch for any dark black, sticky stools or bright red blood in stool. She reports blood pressure is well-controlled in outpatient setting. We encouraged continue to monitor blood pressure to ensure good control. We did encourage her on healthy well-rounded diet and activities to facilitate weight control and improvement of symptoms. By time of discharge she was eating, drinking and breathing well. Her vitals were stable and she was afebrile. She was able to be discharged to home in stable condition. DISCHARGE CONDITION Stable/good. DIET Regular. ACTIVITIES As tolerated. MEDICATIONS 1. Aspirin 81 mg daily. 2. Calcium with vitamin D 600/200 b.i.d. for bone health. 3. Ibuprofen 200 mg three tablets q.6h. p.r.n. pain. FOLLOWUP The patient will follow up with Josephine Mustafa in approximately one week - at that time with results of lipid profile and echocardiogram can be discussed. INSTRUCTIONS TO PATIENT Patient was instructed on her diagnosis and treatments provided. We discussed above noted imaging. We discussed rationale behind aspirin therapy. Advised potential side effects. We did encourage patient on healthy diet and also activities as facilitate control of weight and also promote improvement of fitness. Encouraged to be adherent with her CPAP. Should she develop further neurological concern she should seek medical her sick medical attention promptly. Should problems or need occur she could be in contact with Josephine Mustafa. If symptoms become quite dire she can present to emergency room for acute evaluation. She voiced understanding of the above. Time spent with discharge greater than 30 minutes. SABID
[2016-09-11 03:13] LABS: LDL CHOLESTEROL,CALCULATED 131.4 (66-159); RISK FACTOR 3.5 RATIO (0-4.0); VLDL CHOLESTEROL 15.6 MG/DL (0-28)
== END 2016-09-07 14:19 | disposition home or self-care (01) ==
LOC: ED 17:17 → EDHOLD 18:39 → MED 19:20
PROVIDERS: ADMIT Hospitalist; ATTEND Hospitalist
DX: R47.81 Slurred speech (principal); R20.2 Paresthesia of skin; K14.8 Other diseases of tongue; G47.33 Obstructive sleep apnea (adult) (pediatric); J30.89 Other allergic rhinitis; J30.2 Other seasonal allergic rhinitis; E66.01 Morbid (severe) obesity due to excess calories; Z68.41 Body mass index [BMI] 40.0-44.9, adult; Z79.1 Long term (current) use of non-steroidal anti-inflammatories (NSAID); Z99.89 Dependence on other enabling machines and devices; Z82.3 Family history of stroke
CPT/HCPCS: 36415; 36569; 80048; 80053; 80061; 81001; 81025; 82948; 84484; 85025; 85610; 85730; 93005; 93306; 99218